=== PATIENT | male | born 1970 | race Caucasian/White ===

== ENCOUNTER 2018-02-28 18:16 | Emergency (ER) | payer SELFPAY ==
[2018-02-28] MEDS ORDERED: Sodium Chloride 0.9% 1000 ML 1,000 ML IV STA (18:35)
[2018-02-28 18:39] VITALS: PULSE 78; O2SAT 98
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
[2018-02-28] MEDS ORDERED: Sodium Chloride 0.9% 1000 ML 1,000 ML ONE (18:54)
[2018-02-28 19:08] LABS: BASOPHIL % 0.3 % (0.0-0.4); Basophil (Absolute #) 0.03 (0-0.4); Eosinophil (Absolute #) 0.18 (0-0.5); Granulocyte Absolute (ANC) 5.41 (1.4-6.9); Hematocrit 45.3 % (42-50); Hemoglobin 16.3 gm/dl (12.5-18.0); Lymphocyte (Absolute #) 2.24 (1.0-4.6); Lymphocytes % 25.3 % (24.0-44.0); Mean Cell Volume 82.2 fl (78-100); Mean Corpuscular Hemoglobin 29.6 pg (26-32); Mean Platelet Volume 10.1 fl (6-9.5); Monocyte (Absolute #) 1.01 (0.0-1.3); Monocytes % 11.4 % (0.0-12.0); Platelet Count 247 K/mm3 (150-450); Red Blood Count 5.51 M/mm3 (4.1-5.6); Red Cell Distribution Width 13.2 % (11.5-14.0); White Blood Count 8.9 K/mm3 (4.0-10.5)
[2018-02-28 19:18] VITALS: BP 157/102
[2018-02-28 19:20] LABS: INR 1.05 (0.8-3.0)
[2018-02-28 19:53] LABS: ALBUMIN 4.4 g/dL (3.5-5.0); ALKALINE PHOSPHATASE 76 U/L (38-126); ANION GAP 14.6 MEQ/L (5-15); BLOOD UREA NITROGEN 20 mg/dL (9-20); CHLORIDE 106 mmol/L (98-107); CK-Creatinine Phosphokinase 191 U/L (55-170); Calcium 9.1 mg/dL (8.4-10.2); Carbon Dioxide 26 mmol/L (22-30); Creatinine 1 0.98 mg/dL (0.66-1.25); Glucose 99 mg/dL (74-106); LIPASE 64 U/L (23-300); SGOT/AST 35 U/L (17-59); SGPT/ALT 47 U/L (0-50); SODIUM 142 mmol/L (137-145); Total Protein 7.3 g/dL (6.3-8.2)
[2018-02-28 21:19] LABS: Appearance CLEAR (CLEAR); Glucose NEGATIVE (NEGATIVE); Leukocyte Esterase NEGATIVE (NEGATIVE); Nitrite NEGATIVE (NEGATIVE); Protein,Urine Dip NEGATIVE (Negative)
[2018-02-28 21:20] LABS: Bilirubin NEGATIVE (NEGATIVE); Blood NEGATIVE Ery/ul (0-5); Ketones NEGATIVE (NEGATIVE); Urobilinogen NORMAL mg/dL (0-1)
--- NOTE | 2018-03-01 15:39 | XRAY ---
Exam: AP portable chest film from 02/28/2018. Comparison: None. The left marker was placed on the wrong side of midline on this patient. This was crossed checked with a subsequent CT of the chest proving this was placed on the wrong side. The heart size is normal. The octavio and mediastinal structures appear intact. There is no evidence of mediastinal widening. The lungs are well inflated and reveal no infiltrates, vascular congestion, pneumothorax, or definite pleural fluid. No acute osseous process is seen. Impression: 1. No acute cardiopulmonary disease is seen.
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
== END 2018-02-28 22:09 | disposition home or self-care (01) ==
LOC: ED 18:16
DX: S30.1XXA Contusion of abdominal wall, initial encounter (principal); S00.11XA Contusion of right eyelid and periocular area, initial encounter; S90.01XA Contusion of right ankle, initial encounter; M25.511 Pain in right shoulder; R51 Headache; L98.9 Disorder of the skin and subcutaneous tissue, unspecified; I10 Essential (primary) hypertension; V29.9XXA Motorcycle rider (driver) (passenger) injured in unspecified traffic accident, initial encounter; Z72.0 Tobacco use
CPT/HCPCS: 36415; 70450; 71045; 71260; 73030; 74177; 80053; 81002; 82550; 83690; 84484; 85025; 85610; 93005; 96360; 99285